=== PATIENT | male | born 1955 | race Caucasian/White ===

== ENCOUNTER → 2017-04-05 | Outpatient (CLI) | payer BC | END | disposition home or self-care (01) | LOC: RADMRIMAIN 09:43 | PROVIDERS: ATTEND Otolaryngology | DX: Z53.9 Procedure and treatment not carried out, unspecified reason (principal) ==

== ENCOUNTER → 2017-04-06 | Outpatient (CLI) | payer BC ==
[2017-04-06 08:14] LABS: Blood Urea Nitrogen 19 mg/dL (9-20); Non-African American GFR(MDRD) >60 (>60 ml/min/1.73 sqM)
[2017-04-06 10:09] LABS: Erythrocyte Sedimentation Rate 9 mm/hr (0-15)
[2017-04-06 10:39] LABS: CHCM 33.1; HCT 39.3 % (39.0-53.0); HDW 2.38; HGB 13.7 gm/dL (13.0-17.5); MCH 30.8 pg (25.0-35.0); Mean Platelet Volume 8.3; RBC 4.47 m/uL (4.30-5.90); RDW 12.9 % (11.5-15.5); WBC 4.5 k/uL (3.8-10.6)
[2017-04-06 11:29] LABS: Treponemal Ab Non-Reactive (Non-Reactive)
--- NOTE | 2017-04-07 08:27 | MR ---
EXAMINATION TYPE: MR iac wo/w con DATE OF EXAM: 04/06/2017 COMPARISON: NONE HISTORY: Hearing loss CONTRAST: Performed utilizing 18 mL intravenous MultiHance gadolinium contrast. TECHNIQUE: Multiplanar, multiecho imaging on a 3.0 Shweta magnet is performed through the brain. Atte ntion is paid to the internal auditory canals with thin section imaging. Postcontrast imaging is per formed through the internal auditory canals. FINDINGS:Craniovertebral junction is normal. The pituitary is normal. Diffusion-weighted imaging is performed. No suspicious hyperintensity is present to suggest an acute intracranial infarct or acut e ischemic area. Signal within the brain is normal. Note is made of mucosal thickening within the in ferior maxillary sinuses. Some very minimal mucosal thickening may be within the frontal sinuses. Thin section imaging is performed through the internal auditory canals and cerebellar pontine angles. No cerebellar pontine angle masses are evident. The internal auditory canals appear normal without expansion or erosion. Postcontrast imaging was performed. No suspicious enhancement is evident wit hin the internal auditory canals or the included portions of the brain. IMPRESSIONS:1 . Normal internal auditory canals.
[2017-04-08 13:40] LABS: ANA w/Reflex to Titer NEGATIVE (NEGATIVE)
[2017-04-09 11:16] LABS: Lyme IgG/IgM 0.2 Index; Lyme IgG/IgM Interp NEGATIVE (NEGATIVE)
[2017-04-12 10:44] LABS: Mis test requested (Blood) HEAT SHOCK 70 IGG
== END | disposition home or self-care (01) ==
LOC: RADMRIMAIN 07:47
PROVIDERS: ATTEND Otolaryngology
DX: H93.19 Tinnitus, unspecified ear (principal); H91.93 Unspecified hearing loss, bilateral; R53.83 Other fatigue; M35.5 Multifocal fibrosclerosis; H90.5 Unspecified sensorineural hearing loss
CPT/HCPCS: 85652; 82565; 82947; 84443; 84520; 85027; 86618; 86780; 86038; 83516; 70553; 36415; A9577